=== PATIENT | female | born 1960 | race Caucasian/White ===

== ENCOUNTER 2018-01-11 09:25 | Day surgery (SDC) | payer BC ==
[2018-01-09 18:53] VITALS: BMI 18.9
[2018-01-11] MEDS ORDERED: PROPOFOL 20 ML ONE ×2 (09:46→10:17)
[2018-01-11] MEDS ORDERED: MIDAZOLAM HCL 2 MG/2 ML SINGLE DOSE VIAL ONE (10:10)
[2018-01-11] MEDS ORDERED: DEXAMETHASONE SOD PHOSPHATE 4 MG/1 ML VIAL ONE (10:16)
[2018-01-11] MEDS ORDERED: ONDANSETRON 4 MG/2 ML VIAL ONE (10:16)
[2018-01-11] MEDS ORDERED: BUPIVACAINE HCL/PF 2.5 MG/ML - 30 ML VIAL IJ ONE (10:20)
[2018-01-11] MEDS ORDERED: ceFAZolin SODIUM 1 GM VIAL ONE (10:22)
[2018-01-11] MEDS ORDERED: TRANEXAMIC ACID 1000 MG/10 ML VIAL ONE ×2 (10:22→11:16)
[2018-01-11] MEDS ORDERED: BUPIVACAINE HCL/PF 0.25% (2.5MG/ML) 10 ML VIAL IJ ONE (11:39)
[2018-01-11] MEDS ORDERED: ONDANSETRON 4 MG/2 ML VIAL IVPUSH PRN (12:36)
[2018-01-11] MEDS ORDERED: oxyCODONE HCL 5 MG TABLET PO PRN (12:36)
[2018-01-11] MEDS ORDERED: LACTATED RINGERS SOLUTION 1,000 ML IV SCH (12:45)
--- NOTE | 2018-01-11 12:57 | OP ---
DATE OF OPERATION: 01/11/2018 LOCATION: [facility] SURGEON: Shu Fields MD PREOPERATIVE DIAGNOSES: 1. Right knee medial and lateral meniscal tear. 2. Right knee cartilage injury. 3. Right knee synovitis. POSTOPERATIVE DIAGNOSES: 1. Right knee medial and lateral meniscal tear. 2. Right knee cartilage injury. 3. Right knee synovitis. PROCEDURE: 1. Right knee arthroscopy with partial meniscectomy, medial and lateral meniscus, CPT code 11626. 2. Right knee arthroscopy with chondroplasty, CPT code 78652. 3. Right knee arthroscopy with synovectomy, including removal of medial plica, CPT code 18045. FINDINGS: 1. Medial meniscus body with posterior horn tear, central one-third with posterior two-thirds intact. Undersurface extension to midbody. 2. Lateral meniscus posterior horn tear. 3. Synovitis, posterior horn torn, minor. 4. Synovitis, patellofemoral medial and lateral notch with medial plica. 5. grade 1 cartilage injury, anterior medial chondral tibial plateau. 6. ACL and PCL intact. 7. Anterior grade 2 cartilage injury, lateral femoral condyle. 8. Grade 2 lateral facet grade 2 changes. 9. Synovial scar tissue with thickened ball along the posterolateral joint line. PROCEDURE: Informed consent was obtained. The patient came to the operating room, where the lower extremity was prepped and draped in a sterile fashion. A tourniquet was placed on the upper thigh but was not inflated. Using standard arthroscopic technique, a lateral incision and portal were made to allow for introduction of the camera into the suprapatellar bursa. This was then taken to the medial joint line, where under direct visualization, a medial incision and portal were made. Excessive synovium was noted in the medial, lateral patellofemoral and notch area. It was removed by an upbiter, shaver and Bovie cautery. This was found to bring inflammatory tissue into the joint surface, a source of pain and dysfunction. Probing of the medial and lateral meniscus found tears, as described in the findings. These were removed with the upbiter and shaver and taken back to a stable rim. Grade 2 to 3 degenerative changes were treated with a chondroplasty, removing all flaking surfaces with low-setting Bovie along the periphery to prevent further flaking. Grade 4 changes, as noted, were treated with an abrasoplasty, creating a bleeding surface at the bone/cartilage interface. Aggressive debridement with shaver/andi created bleeding surface. Microfracture was also done when indicated in findings. All areas of the knee were once again reexamined. The knee was then drained and a single suture was placed in all portals. A sterile dressing was placed and the patient was transferred to the recovery room without complication. The PA listed above was present and assisted at surgery. Their presence was absolutely medically necessary for the completion of the procedure. They helped hold the arthroscopy, pass instruments (and implants when indicated) and the procedure could not have been completed without their assistance. SHU FIELDS M.D. [id number]
[2018-01-11 13:34] VITALS: TEMP 97.5
[2018-01-11 14:41] VITALS: BP 137/88; PULSE 68
--- NOTE | 2018-01-17 14:47 | PATH ---
Surgical Pathology Report Patient Name: JACKI GUERRERO [facility]. Rec. #: [id number] /Age/Gender: 1960 (Age: 57) / F Account: [id number] Location: Taken: 01/11/2018 Received: 01/11/2018 Reported: 01/17/2018 Physicians: Higinio Richmond M.D. Specimen(s) Received RIGHT KNEE SHAVINGS Clinical History Right knee derangement Final Diagnosis KNEE, RIGHT, ARTHROSCOPIC SHAVINGS: PIGMENTED VILLONODULAR SYNOVITIS. Electronically Signed Maria Isabel Murphy M.D. Gross Description Received in formalin, labeled "right knee shavings," is a 4.0 x 3.5 x 0.3 cm. aggregate of torres-yellow soft tissue fragments. Manager Produce tissue is submitted in three cassettes. /01/11/2018 saudi01/11/2018
== END 2018-01-11 14:00 | disposition home or self-care (01) ==
LOC: FASUSAT 09:25
PROVIDERS: ATTEND Orthopaedic Surgery
PROC: 0SBC4ZZ Excision of Right Knee Joint, Percutaneous Endoscopic Approach (ICD-10-PCS; 2018-01-11)
PROC: 0SBC4ZZ Excision of Right Knee Joint, Percutaneous Endoscopic Approach (ICD-10-PCS; 2018-01-11)
PROC: 0SBC4ZZ Excision of Right Knee Joint, Percutaneous Endoscopic Approach (ICD-10-PCS; principal; 2018-01-11 10:30)
DX: S83.241A Other tear of medial meniscus, current injury, right knee, initial encounter (principal); S83.281A Other tear of lateral meniscus, current injury, right knee, initial encounter; S83.8X1A Sprain of other specified parts of right knee, initial encounter; M65.861 Other synovitis and tenosynovitis, right lower leg; X58.XXXA Exposure to other specified factors, initial encounter; Y93.9 Activity, unspecified; Y92.9 Unspecified place or not applicable
CPT/HCPCS: 88305-TC; 94760